=== PATIENT | male | born 1945 | race Caucasian/White ===

== ENCOUNTER 2018-01-09 09:30 | Outpatient (RCR) | payer OTHER, SELFPAY ==
--- NOTE | 2017-10-30 16:08 | ST.OPTN ---
On October 30, 2017 our therapy services consisting of Speech, Occupational, and Physical therapy transitioned from [employer] electronic documentation system to a new [employer] electronic system. All documentation prior to October 30 can be found under [employer] saved data. From October 30 forward, all medical record documentation will be in [employer] 6.1.
== END 2018-05-31 12:54 ==
LOC: SP 09:30
PROVIDERS: Family Provider Family Medicine; PCP Family Medicine; Visit Provider Family Medicine
DX: I63.411 Cerebral infarction due to embolism of right middle cerebral artery (principal); R47.1 Dysarthria and anarthria; I69.320 Aphasia following cerebral infarction
CPT/HCPCS: 92507

== ENCOUNTER → 2019-01-30 08:26 | Outpatient (CLI) | payer OTHER, SELFPAY ==
--- NOTE | 2019-01-30 | DI.MRI.S_ITS ---
PROCEDURE: MR HEAD/BRAIN WO CON INDICATIONS: Trigeminal neuralgia TECHNIQUE: Noncontrast axial T1 spin echo, axial T2 fast spin echo, sagittal and axial FLAIR, coronal T2 fast spin echo, axial gradient echo, axial diffusion and ADC through the brain. COMPARISON: [facility], , STROKE PROTOCOL B, 04/22/2008, 13:41. FINDINGS: Image quality: Excellent. CSF Spaces: Basal cisterns are patent. No extra-axial fluid collections. Ventricles are normal in size and shape. Brain: No intracranial masses or hemorrhage. [place]/white matter interface is abnormal in areas of prior stroke involving the medial right occipital lobe, and the right parietal lobe, and a new area of chronic stroke is seen at the frontotemporal junction on the left.. Brainstem appears normal. Diffusion-weighted images demonstrate no acute ischemic insult. No chronic ischemic insults. Normal intravascular flow voids are present. Skull and face: Calvarium has normal marrow signal. Orbits appear normal. Sinuses: Sinuses and mastoids are clear. IMPRESSION: Chronic appearing strokes have progressed over time initially located at the medial right occipital lobe and thereafter located at the right parietal lobe, and finally now also present at the left frontotemporal junction. No abnormal contrast enhancement is associated. No edema is found that would indicate acute or subacute ischemic injury in this patient at this time. A source of trigeminal neuralgia is not found. Dictated by: Juan Hollis M.D. on 01/30/2019 at 10:04 Approved by: Juan Hollis M.D. on 01/30/2019 at 10:09
== END ==
PROVIDERS: Family Provider Family Medicine; PCP Family Medicine; Visit Provider Family Medicine
DX: G50.0 Trigeminal neuralgia (principal); I63.9 Cerebral infarction, unspecified
CPT/HCPCS: 70551